=== PATIENT | male | born 1945 | race Caucasian/White ===

== ENCOUNTER 2019-02-17 23:16 | Inpatient (IN) | payer OTHER ==
[~2019-02-17] VITALS: Ht 170.2 cm; Wt 88.1 kg
[2019-02-17 23:38] VITALS: BP_SYST 131
--- NOTE | 2019-02-17 23:44 | NUR ---
Patient triaged and placed in waiting room. VSS and patient appears in no acute distress at this time. Accompanied by , awaiting available bed, and MD notified of need for MSE.
[2019-02-18 00:29] LABS: BASOPHILS # (AUTO) 0.1 K/uL (0.0-0.2); EOSINOPHILS # (AUTO) 0.7 K/uL (0.0-0.4); EOSINOPHILS % (AUTO) 5.5 % (0.0-4.0); HEMATOCRIT 43.9 % (36-54); HEMOGLOBIN 14.2 g/dL (14.0-18.0); LYMPHOCYTES # (AUTO) 2.4 K/uL (1.0-5.5); LYMPHOCYTES % (AUTO) 19.7 % (20.5-51.5); MEAN CORPUSCULAR HEMOGLOBIN 27 pg (27-31); MEAN CORPUSCULAR HGB CONC 32 % (32-36); MEAN CORPUSCULAR VOLUME 82 fL (79.0-98.0); MONOCYTES # (AUTO) 1.2 K/uL (0.0-1.0); MONOCYTES % (AUTO) 9.8 % (1.7-9.3); NEUTROPHILS # (AUTO) 7.8 K/uL (1.8-7.7); PLATELET COUNT (AUTO) 342 K/uL (130-430); RED BLOOD CELL COUNT(AUTO) 5.36 MIL/uL (4.2-6.2); RED CELL DISTRIBUTION WIDTH 15.4 % (9.0-15.0); WHITE BLOOD COUNT (AUTO) 12.1 K/uL (4.8-10.8)
--- NOTE | 2019-02-18 00:40 | NUR ---
Placed in room 8 . Placed on cardiac catheterization technologist, blood pressure machine and pulse oximeter. To gown for exam. Side rails up.
--- NOTE | 2019-02-18 01:03 | NUR ---
VANE Wetzel at bedside examining patient.
[2019-02-18 01:04] LABS: ANION GAP 9 (5-15); CALCIUM 8.7 mg/dL (8.4-11.0); CHLORIDE 105 mmol/L (98-107); CREATININE 1.19 mg/dL (0.55-1.30); GLUCOSE 168 mg/dL (70-99); POTASSIUM 4.6 mmol/L (3.5-5.1); SODIUM SERUM 138 mmol/L (136-145); UREA NITROGEN, BLOOD 29 mg/dL (8-21)
--- NOTE | 2019-02-18 01:05 | NUR ---
Rectal exam performed by Dr. Wetzel with TOLU Middleton at bedside during procedure. Patient tolerated well.
--- NOTE | 2019-02-18 01:08 | NUR ---
Note undone in EDM - 02/18/19 at 0318 by [email or web address] Patient brought in with complaining of lower GI bleed starting this evening. Patient reports that he went to the restroom and attempted to have a bowel movement but started to have bleeding. Patient's reports patient is on Coumadin for history of TIAs. Patient also has history of prostate cancer. Denies any nausea, vomiting or diarrhea. Denies any pain. No other complaints/injuries per patient or as noted. Will continue to monitor.
--- NOTE | 2019-02-18 01:08 | NUR ---
Patient placed in bed 8 in wheelchair with blood saturating chair and clothing. Patient brought in with complaining of lower GI bleed starting this evening. Patient reports that he went to the restroom and attempted to have a bowel movement but started to have bleeding. Patient's reports patient is on Coumadin for history of TIAs. Patient also has history of prostate cancer. Denies any nausea, vomiting or diarrhea. Denies any pain. No other complaints/injuries per patient or as noted. Will continue to monitor.
[2019-02-18 01:18] LABS: ALANINE AMINOTRANSFERASE 37 U/L (12-78); ALBUMIN 2.6 g/dL (3.4-4.8); ASPARTATE AMINOTRANSFERASE 18 U/L (10-37); TOTAL BILIRUBIN 0.4 mg/dL (0.0-1.0)
[2019-02-18 01:27] LABS: INR 2.7 (0.80-1.20); PROTHROMBIN TIME 26.7 SECS (9.5-12.5)
--- NOTE | 2019-02-18 01:30 | NUR ---
Personal hygiene given to patient. Cleaned with 10 saturated washclothes and 4 large towels. No active bleeding noted at this time. Patient voiced no complaints. Will continue to monitor.
--- NOTE | 2019-02-18 01:30 | NUR ---
Note timoteo in EDM - 02/18/19 at 0319 by [email or web address] Personal hygiene given to patient. No active bleeding noted at this time. Patient voiced no complaints. Will continue to monitor.
[2019-02-18] MEDS ORDERED: LISI40TA4 PO (01:44)
[2019-02-18] MEDS ORDERED: WARF5TAB2 PO (01:45)
[2019-02-18] MEDS ORDERED: AMLO2.5T2 PO (01:45)
[2019-02-18] MEDS ORDERED: METO-442 PO (01:45)
[2019-02-18] MEDS ORDERED: ATOR40TA68 PO (01:45)
--- NOTE | 2019-02-18 01:45 | NUR ---
Medication reconciliation completed with information provided by Patient's with medicine bottles. Any prior medication reconciliation on file was reviewed and corrected.
--- NOTE | 2019-02-18 02:01 | NUR ---
EKG performed at BS. Physician given copy of EKG for review.
--- NOTE | 2019-02-18 03:00 | NUR ---
REPORT GIVEN TO TOLU TUBBS FOR CONTINUATION OF CARE
--- NOTE | 2019-02-18 03:36 | NUR ---
Patient will be admitted to care of Dr. Valencia. Admitted to Telemetry unit. Will go to room 133 A. Belongings list completed. Summary report printed. Report will be given at bedside.
--- NOTE | 2019-02-18 03:36 | NUR ---
Transfer to Telemetry via ACLS protocol. Licensed nurse present. IV present no signs or symptoms of infiltration.
--- NOTE | 2019-02-18 04:14 | NUR ---
ADMISSION: The patient, PHIL FINK, 73 y/o, M admitted by SILVERIO HAMPTON MD, WITH THE DIAGNOSIS OF G I BLEED , TO ROOM 133A ,was given written information regarding hospital policies, unit procedures and contact persons.
[2019-02-18 04:22] VITALS: BP_SYST 143
--- NOTE | 2019-02-18 04:47 | NUR ---
Consultation Paged: YES Reason for Consultation: GI BLEEDING Was consult called: Y Person who was notified: MICHELLE Consulting Physician: Dr. BARBER CHAHAL DERMATOLOGIST MANAGING PARTNER THIS MORNING Crusher Supervisor Ordering Physician: Dr. HAMPTON
[2019-02-18 05:55] LABS: BASOPHILS # (AUTO) 0.1 K/uL (0.0-0.2); BASOPHILS % (AUTO) 0.6 % (0.0-2.0); EOSINOPHILS # (AUTO) 0.2 K/uL (0.0-0.4); EOSINOPHILS % (AUTO) 1.7 % (0.0-4.0); HEMATOCRIT 40.3 % (36-54); HEMOGLOBIN 13.1 g/dL (14.0-18.0); LYMPHOCYTES # (AUTO) 1.9 K/uL (1.0-5.5); LYMPHOCYTES % (AUTO) 15.5 % (20.5-51.5); MEAN CORPUSCULAR HEMOGLOBIN 27 pg (27-31); MEAN CORPUSCULAR HGB CONC 33 % (32-36); MEAN CORPUSCULAR VOLUME 82 fL (79.0-98.0); MONOCYTES # (AUTO) 0.9 K/uL (0.0-1.0); MONOCYTES % (AUTO) 6.9 % (1.7-9.3); NEUTROPHILS # (AUTO) 9.4 K/uL (1.8-7.7); NEUTROPHILS % (AUTO) 75.3 % (40.0-70.0); PLATELET COUNT (AUTO) 262 K/uL (130-430); RED BLOOD CELL COUNT(AUTO) 4.91 MIL/uL (4.2-6.2); RED CELL DISTRIBUTION WIDTH 15.9 % (9.0-15.0); WHITE BLOOD COUNT (AUTO) 12.5 K/uL (4.8-10.8)
--- NOTE | 2019-02-18 06:32 | NUR ---
Patient resting in bed with eyes closed. Breathing unlabored and even on 2L oxygen via NC. No signs of distress, no needs at this time. Fall and safety precautions in place. Bed in lowest position, brake on, alarm on, call light within reach. Will continue to monitor.
[2019-02-18 06:33] LABS: ANION GAP 4 (5-15); CALCIUM 8.4 mg/dL (8.4-11.0); CHLORIDE 107 mmol/L (98-107); CREATININE 0.99 mg/dL (0.55-1.30); GLUCOSE 140 mg/dL (70-99); POTASSIUM 4.7 mmol/L (3.5-5.1); SODIUM SERUM 134 mmol/L (136-145); UREA NITROGEN, BLOOD 29 mg/dL (8-21)
[2019-02-18 06:38] LABS: ALANINE AMINOTRANSFERASE 31 U/L (12-78); ALBUMIN 2.6 g/dL (3.4-4.8); ASPARTATE AMINOTRANSFERASE 12 U/L (10-37); TOTAL BILIRUBIN 0.4 mg/dL (0.0-1.0)
--- NOTE | 2019-02-18 06:53 | NUR ---
CLOSING NOTE Patient resting in bed with eyes closed. Breathing unlabored and even on 2L oxygen via NC. No signs of distress, no needs at this time. Fall and safety precautions in place. Bed in lowest position, brake on, alarm on, call light within reach. Will endorse cares to day shift nurse.
--- NOTE | 2019-02-18 07:05 | NUR ---
Dr. Barroso at the bedside. Orders received.
[2019-02-18] MEDS ORDERED: PHYTONADIONE 10 MG/ML AMP SUBCUT ONE (07:15)
--- NOTE | 2019-02-18 07:38 | NUR ---
OPENING NOTE Patient resting in the bed. No acute distress. AAO x 4. Denied of pain. Skin warm and dry to touch. SL intact to LAC and RAC, no redness, no swelling, patent. Discussed the safety issue, use call light when needs help, and plan of care, verbally understanding. Safety measure maintained. Call light within reached. Bed locked in low position, side rails up, bed alarm on. Will continue to monitor.
[2019-02-18 08:00] VITALS: BP_SYST 130
[2019-02-18] MEDS ORDERED: LEVOFLOXACIN 500 MG/D5W 100 ML IV SCH (08:00)
--- NOTE | 2019-02-18 09:02 | NUR ---
SCHEDULE MED GIVEN Patient resting in the bed. No acute distress. Safety measure maintained. Call light within reached. Bed locked in low position, side rails up, bed alarm on. Call light within reached. Continue to monitor.
[2019-02-18] MEDS: metroNIDAZOLE 500 mg/NS 100 ML IV SCH ×2 (10:16→21:54)
--- NOTE | 2019-02-18 10:31 | NUR ---
Nutrition Update Irwin Scale 18 noted. Pt admitted for GI bleed. Diet: clear liquid BMI: 30.4 kg/m2 RD to follow per nutrition care standards.
[2019-02-18 11:37] VITALS: BP_SYST 145
[2019-02-18] MEDS ORDERED: METOPROLOL TARTRATE 50 MG TABLET PO ONE (11:45)
[2019-02-18] MEDS ORDERED: ATORVASTATIN 20 MG TABLET PO ONE (11:45)
[2019-02-18] MEDS ORDERED: amLODIPine BESYLATE 5 MG TABLET PO ONE (11:45)
[2019-02-18] MEDS ORDERED: LISINOPRIL 20 MG TABLET PO ONE (11:45)
--- NOTE | 2019-02-18 12:00 | NUR ---
SEEN AND EXAMINED BY SILVERIO AQUINO WITH ORDER.
[2019-02-18 12:09] LABS: HEMATOCRIT 39.3 % (36-54)
[2019-02-18] MEDS: NACL 0.9% 1,000 ML IV SCH (14:18)
--- NOTE | 2019-02-18 14:22 | NUR ---
AT BEDSIDE Patient resting in the bed. No acute distress. IV intact, IVF infusing well. at bedside. Safety measure maintained. Call light within reached. Bed locked in low position, side rails up, bed alarm on. Continue to monitor.
[2019-02-18 15:50] VITALS: BP_SYST 136
--- NOTE | 2019-02-18 16:20 | NUR ---
ROUND Patient resting in the bed and watching TV. No acute distress. IV intact, IVF infusion well. Safety measure maintained. Call light within reached. Continue to monitor.
[2019-02-18] MEDS ORDERED: GOLYTELY / COLYTE SOLUTION 4 LITERS PO ONE (18:30)
--- NOTE | 2019-02-18 18:32 | NUR ---
SEEN AND EXAMINED BY IVETH CONNOLLY WITH ORDERS RECEIVED.
[2019-02-18 18:48] LABS: HEMATOCRIT 37.8 % (36-54); HEMOGLOBIN 12.2 g/dL (14.0-18.0)
--- NOTE | 2019-02-18 18:59 | NUR ---
CLOSING NOTE Patient resting in the bed. No acute distress. Denied of pain. Skin warm and dry to touch. SL intact to LAC and RAC, no redness, no swelling, no drainage. On NS at 60ml/hr, infusing well. All need met and attended. Safety measure maintained. Call light within reached. Bed locked in low position, side rails up, bed alarm on. Will endorse to night nurse.
--- NOTE | 2019-02-18 20:00 | NUR ---
BED SIDE COMMODE PUT @ THE BEDSIDE GOLYTELY PO GIVEN .
--- NOTE | 2019-02-18 20:30 | NUR ---
GOLYTELY PO PATIENT ALERT TOLERATING AND ENCOURAGED .
[2019-02-18] MEDS ORDERED: GOLYTELY / COLYTE SOLUTION 4 LITERS ONE (20:49)
[2019-02-18] MEDS ORDERED: PANTOPRAZOLE SODIUM 40 MG/VIAL (PROTONIX) IVP SCH (21:00)
[2019-02-18] MEDS ORDERED: METOPROLOL TARTRATE 50 MG TABLET PO SCH (21:00)
[2019-02-18 21:11] VITALS: BP_SYST 137
--- NOTE | 2019-02-18 21:15 | NUR ---
CORINNELY , PATIENT TOLERATING USING BSC , WATERY LOOSE RED STOOL IS NOTED assist as needed .
--- NOTE | 2019-02-18 23:22 | NUR ---
PATIENT REQUESTING MORE INFORMATION EXPLANATION FROM DR WANG REGARDING AM COLONOSCOPY , BEFORE SIGN CONSENT / .
--- NOTE | 2019-02-18 23:24 | NUR ---
ASSIST TO BSC WATERY LOOSE STOOL DARK RED IS STILL NOTED , PATIENT ALERT .
[2019-02-19 00:16] LABS: HEMATOCRIT 39.5 % (36-54); HEMOGLOBIN 13.1 g/dL (14.0-18.0)
[2019-02-19 00:53] VITALS: BP_SYST 120
--- NOTE | 2019-02-19 05:00 | NUR ---
75 % OF GOLYTELY CONSUMED , PATIENT REFUSING OTHER 25 % , CALL PLACED TO DR FELIPE SAMS .
--- NOTE | 2019-02-19 05:01 | NUR ---
PHONED PAGED DR FELIPE SAMS , REGARDING PATIENT IS NOT CLEAR & DID REFUSE 25 % OF SOLUTION , STATES DOES NOT WANT ANY MORE GOLYTELY .
--- NOTE | 2019-02-19 05:35 | NUR ---
REFUSING , PATIENT REFUSING BLOOD DRAWLS .
--- NOTE | 2019-02-19 05:40 | NUR ---
SPOKE WITH DR WANG & GAVE UPDATE .
--- NOTE | 2019-02-19 06:02 | NUR ---
TAP WATER ENEMA GIVEN WITH SEMI CLEAR WATERY RETURN , PATIENT TOLERATE .
[2019-02-19] MEDS: NACL 0.9% 1,000 ML IV SCH (06:31)
[2019-02-19] MEDS ORDERED: MIDAZOLAM HCL 5 MG/5 ML VIAL ONE ×2 (07:44)
[2019-02-19] MEDS ORDERED: SIMETHICONE 40 MG/0.6 ML ML ONE (07:45)
[2019-02-19 08:00] VITALS: BP_SYST 164
--- NOTE | 2019-02-19 08:00 | NUR ---
initial notes rec patient awake somewhat upset with the preparation for colonoscopy today. took 75% of for the golytely only but looks clear for the latest bm. dr leo came and explained to patient re procedure.
[2019-02-19] MEDS: MEPERIDINE HCL/PF 100 MG/ML AMP ONE ×2 (08:29→08:31)
[2019-02-19] MEDS ORDERED: LISINOPRIL 20 MG TABLET PO SCH (09:00)
[2019-02-19] MEDS ORDERED: ATORVASTATIN 20 MG TABLET PO SCH (09:00)
[2019-02-19] MEDS ORDERED: HYDROCORTISONE ACETATE 1 SUPP (ANUSOL HC) RC PRN (09:00)
[2019-02-19] MEDS ORDERED: amLODIPine BESYLATE 5 MG TABLET PO SCH (09:00)
--- NOTE | 2019-02-19 09:50 | NUR ---
rounds was back from his gi procedure and with iv infusing well on the r forearm. no infiltration noted.
[2019-02-19] MEDS ORDERED: ANURH RC (10:21)
[2019-02-19 12:37] VITALS: BP_SYST 127
[2019-02-19 12:50] VITALS: BP_SYST 127
--- NOTE | 2019-02-19 13:00 | NUR ---
closing notes pt was jeannine hurry to be d/c. instruction re prescription and follow up with pmd was discussed. no sob noted. bed to the lowest position.
== END 2019-02-19 13:00 | disposition home or self-care (01) | DRG 378 ==
LOC: SED 23:16 → STU 02-18 02:32 → SMU 02-18 12:00
PROVIDERS: ADMIT Internal Medicine Hospice and Palliative Medicine; ATTEND Internal Medicine Hospice and Palliative Medicine
PROC: 0DBL8ZZ Excision of Transverse Colon, Via Natural or Artificial Opening Endoscopic (ICD-10-PCS; principal; 2019-02-19 09:00)
DX: K57.31 Diverticulosis of large intestine without perforation or abscess with bleeding (principal); D62 Acute posthemorrhagic anemia; E11.9 Type 2 diabetes mellitus without complications; I10 Essential (primary) hypertension; K57.33 Diverticulitis of large intestine without perforation or abscess with bleeding; K63.5 Polyp of colon; K64.9 Unspecified hemorrhoids; Z86.73 Personal history of transient ischemic attack (TIA), and cerebral infarction without residual deficits; Z85.46 Personal history of malignant neoplasm of prostate; Z79.899 Other long term (current) drug therapy; Z79.01 Long term (current) use of anticoagulants
CPT/HCPCS: 36415; 45380; 80053; 85018-TC; 85025; 85610-TC; 85730-TC; 86886; 86900; 86901; 88305; 93005; 99285; C9113; J1956; J2175; J2250; J3430; J3490; J7030